=== PATIENT | male | born 1950 | race Caucasian/White ===

== ENCOUNTER 2024-09-16 16:57 | Inpatient (IN) | payer MEDICARE, OTHER ==
[~2024-09-16] VITALS: Ht 175.3 cm; Wt 109.8 kg
[2024-09-16] MEDS ORDERED: PREG75CA76 PO (17:41)
[2024-09-16] MEDS ORDERED: MAGN500T2 PO (17:41)
[2024-09-16] MEDS ORDERED: ASPI-869 PO (17:41)
[2024-09-16] MEDS ORDERED: DIVA250T47 PO (17:41)
[2024-09-16] MEDS ORDERED: DULO20CA19 PO (17:41)
[2024-09-16] MEDS ORDERED: ICOS1CAP PO (17:41)
[2024-09-16] MEDS ORDERED: PRAV20TA4 PO (17:42)
[2024-09-16] MEDS ORDERED: OMEP1CAP24 PO (17:42)
[2024-09-16] MEDS ORDERED: QUET200T31 PO (17:42)
[2024-09-16] MEDS ORDERED: SEMA1PEN INJ (17:42)
[2024-09-16] MEDS ORDERED: ERGO500040 PO (17:42)
[2024-09-16] MEDS ORDERED: DOCU100T10 PO (17:42)
[2024-09-16] MEDS ORDERED: ALLO100T PO (17:42)
[2024-09-16] MEDS ORDERED: EZET10TA32 PO (17:42)
[2024-09-16] MEDS ORDERED: ENAL20TA18 PO (17:42)
[2024-09-16] MEDS ORDERED: DAPA10TA PO (17:42)
[2024-09-16] MEDS ORDERED: TADA20TA43 PO (17:42)
[2024-09-16] MEDS ORDERED: CELE-85 PO (17:42)
[2024-09-16] MEDS ORDERED: DULO60CA64 PO (17:42)
[2024-09-16] MEDS ORDERED: TAMS-3 PO (17:42)
[2024-09-16] MEDS ORDERED: LEVO100T10 PO (17:42)
[2024-09-16 17:47] LABS: BASOPHILS % (AUTO) 0.7 % (0.0-2.0); EOSINOPHILS # (AUTO) 0.1 K/uL (0.0-0.7); EOSINOPHILS % (AUTO) 1.3 % (0.0-7.0); HEMATOCRIT 52.4 % (36.7-47.1); HEMOGLOBIN 17.4 g/dL (12.5-16.3); LYMPHOCYTES # (AUTO) 1.4 K/uL (0.8-4.8); LYMPHOCYTES % (AUTO) 20.8 % (20.5-51.5); MEAN CORPUSCULAR HEMOGLOBIN 29.2 uug (23.8-33.4); MEAN CORPUSCULAR HGB CONC 33 g/dL (32.5-36.3); MEAN CORPUSCULAR VOLUME 87.9 fL (73.0-96.2); MONOCYTES # (AUTO) 0.5 K/uL (0.1-1.30); MONOCYTES % (AUTO) 7.8 % (0.0-11.0); NEUTROPHILS # (AUTO) 4.6 K/uL (1.8-8.9); NEUTROPHILS % (AUTO) 69.4 % (38.5-71.5); PLATELET COUNT (AUTO) 222 K/uL (152-348); RED BLOOD CELL COUNT(AUTO) 5.96 MIL/uL (4.06-5.63); RED CELL DISTRIBUTION WIDTH 18.2 % (12.1-16.2); WHITE BLOOD COUNT (AUTO) 6.7 K/uL (3.6-10.2)
[2024-09-16 17:55] LABS: DIFFERENTIAL COMMENT 1
[2024-09-16 18:01] LABS: CALCIUM 9.4 mg/dL (8.5-10.1); CARBON DIOXIDE 27 mmol/L (21-32); CHLORIDE 97 mmol/L (98-107); CREATININE 1.1 mg/dL (0.6-1.3); GLUCOSE 247 mg/dL (74-106); POTASSIUM 4.9 mmol/L (3.5-5.1); SODIUM SERUM 134 mmol/L (136-145); UREA NITROGEN, BLOOD 19 mg/dL (7-18)
[2024-09-16 18:05] LABS: ETHANOL < 3 MG/DL (0-10)
[2024-09-16 18:06] LABS: ALANINE AMINOTRANSFERASE 66 U/L (16-63); ALBUMIN 4.2 g/dL (3.4-5.0); ALKALINE PHOSPHATASE 68 U/L (50-136); ASPARTATE AMINOTRANSFERASE 50 U/L (15-37); BILIRUBIN,DIRECT 0.3 mg/dL (0.0-0.2); BILIRUBIN,TOTAL 0.8 mg/dL (0.2-1.0); TOTAL PROTEIN, SERUM 7.6 g/dL (6.4-8.2)
[2024-09-16 18:45] LABS: BAND % (MANUAL) 1 % (0-10); EOSINOPHILS % (MANUAL) 3 % (0-8); LYMPHOCYTES % (MANUAL) 23 % (20-40); MONOCYTES % (MANUAL) 6 % (2-10); NEUTROPHILS % (MANUAL) 67 % (42-75); PLATELET ESTIMATE ADEQUATE
[2024-09-16 18:46] LABS: ANISOCYTOSIS 1+; OVALOCYTES OCC
[2024-09-16 19:08] LABS: *BILIRUBIN,URIN NEGATIVE (NEGATIVE); *BLOOD, URINE 2+ (NEGATIVE); *CLARITY,URINE CLEAR (CLEAR); *COLOR,URINE LIGHT YELLOW (YELLOW); *KETONES,URINE TRACE (NEGATIVE); *PROTEIN,URINE 1+ (NEGATIVE); *UROBILINOGEN,URINE 0.2 E.U./dl (NORMAL); LEUKOCYTE ESTERASE ,URINE TRACE (NEGATIVE); NITRITE, URINE NEGATIVE (NEGATIVE); UGLUCOSE 3+ (NEGATIVE)
[2024-09-16 19:12] LABS: BACTERIA,URINE FEW /HPF (NONE SEEN); SQUAMOUS EPITHELIAL CELL,UR FEW /HPF (NONE SEEN)
[2024-09-16 19:18] LABS: *AMPHETAMINE, URINE NEGATIVE (NEGATIVE); *BARBITURATE, URINE NEGATIVE (NEGATIVE); *BENZODIAZEPINE, URINE NEGATIVE (NEGATIVE); *CANNABINOID, URINE NEGATIVE (NEGATIVE); *COCCAINE, URINE NEGATIVE (NEGATIVE); *OPIATE, URINE NEGATIVE (NEGATIVE); *PHENCYCLIDINE SCREEN,URINE NEGATIVE (NEGATIVE); FENTANYL, URINE NEGATIVE (NEGATIVE)
[2024-09-16 22:00] VITALS: BP 153/92; TEMP 97.8; O2SAT 97
[2024-09-16] MEDS ORDERED: MAGNESIUM HYDROXIDE 30 ML LIQUID UDC PO PRN (22:00)
[2024-09-16] MEDS ORDERED: QUETIAPINE FUMARATE 25 MG TABLET PO PRN (22:00)
[2024-09-16] MEDS ORDERED: MAG HYDROX/AL HYDROX/SIMETH 30 ML LIQUID UDC PO PRN (22:00)
[2024-09-16] MEDS ORDERED: ZOLPIDEM 5 MG TABLET PO PRN ×2 (22:00)
[2024-09-16] MEDS ORDERED: ACETAMINOPHEN 325 MG TABLET PO PRN (22:00)
[2024-09-16] MEDS: BLOOD SUGAR DIAGNOSTIC 1 EACH STRIP VI ONE (22:20)
[2024-09-16] MEDS: QUETIAPINE FUMARATE 25 MG TABLET PO ONE (22:21)
[2024-09-16] MEDS: hydrALAZINE HCL 25 MG TABLET PO PRN (23:41)
[2024-09-17 08:14] VITALS: BP 131/65; TEMP 98; O2SAT 91
[2024-09-17] MEDS ORDERED: DUTA0.5C37 PO (10:16)
[2024-09-17] MEDS ORDERED: TADALAFIL 20 MG PO SCH (10:45)
[2024-09-17] MEDS: PREGABALIN 25 MG CAPSULE PO SCH (12:53)
[2024-09-17] MEDS ORDERED: PREGABALIN PO SCH (13:00)
[2024-09-17] MEDS: CEphaleXIN 500 MG CAPSULE PO SCH (14:22)
[2024-09-17 15:57] VITALS: BP 152/83; TEMP 98; O2SAT 98
[2024-09-17] MEDS ORDERED: DOCUSATE SODIUM 100 MG PO SCH (17:00)
[2024-09-17] MEDS ORDERED: Icosapent Ethyl (Vascepa) 2 CAP) PO SCH (17:00)
[2024-09-17] MEDS: DOCUSATE SODIUM 100 MG CAPSULE PO SCH (17:51)
[2024-09-17] MEDS: CELECOXIB 200 MG CAPSULE PO SCH (17:51)
[2024-09-17] MEDS ORDERED: DEXTROSE 50% 50 ML DISP.SYRIN IV PRN (18:45)
[2024-09-17 20:00] VITALS: BP 162/81; TEMP 98.1; O2SAT 96
[2024-09-17] MEDS: BLOOD SUGAR DIAGNOSTIC 1 EACH STRIP VI SCH (21:00)
[2024-09-17] MEDS ORDERED: risperiDONE 0.5 MG TABLET PO SCH (21:00)
[2024-09-17] MEDS: ATORVASTATIN 10 MG TABLET PO SCH (21:06)
[2024-09-17] MEDS: risperiDONE 0.25 MG TABLET PO SCH (21:06)
[2024-09-18] MEDS: LEVOTHYROXINE SODIUM 100 MCG TABLET PO SCH (06:36)
[2024-09-18] MEDS: PANTOPRAZOLE SODIUM 40 MG TABLET.DR PO SCH (06:36)
[2024-09-18 07:58] LABS: ALANINE AMINOTRANSFERASE 81 U/L (16-63); ALBUMIN 3.9 g/dL (3.4-5.0); ALKALINE PHOSPHATASE 65 U/L (50-136); ASPARTATE AMINOTRANSFERASE 61 U/L (15-37); BILIRUBIN,TOTAL 0.8 mg/dL (0.2-1.0); CALCIUM 8.8 mg/dL (8.5-10.1); CARBON DIOXIDE 28 mmol/L (21-32); CHLORIDE 99 mmol/L (98-107); GLUCOSE 211 mg/dL (74-106); SODIUM SERUM 136 mmol/L (136-145); TOTAL PROTEIN, SERUM 7.7 g/dL (6.4-8.2); UREA NITROGEN, BLOOD 18 mg/dL (7-18)
[2024-09-18 08:04] LABS: POTASSIUM 4.6 mmol/L (3.5-5.1)
[2024-09-18] MEDS: DUTASTERIDE 0.5 MG CAPSULE PO SCH (09:39)
[2024-09-18] MEDS: ASPIRIN EC 325 MG TABLET.DR PO SCH (09:40)
[2024-09-18] MEDS: DAPAGLIFLOZIN PROPANEDIOL 10 MG TABLET PO SCH (09:41)
[2024-09-18] MEDS: ENALAPRIL 10 MG TABLET PO SCH (09:42)
[2024-09-18] MEDS: ALLOPURINOL 100 MG TABLET PO SCH (09:43)
[2024-09-18] MEDS: EZETIMIBE 10 MG TABLET PO SCH (10:00)
[2024-09-18 10:47] VITALS: BP 122/71; TEMP 98; O2SAT 99
[2024-09-18 15:30] VITALS: BP 139/78; TEMP 98; O2SAT 96
[2024-09-18 20:00] VITALS: BP 151/88; TEMP 97.5; O2SAT 98
[2024-09-18] MEDS: ATORVASTATIN 20 MG TABLET PO SCH (20:29)
[2024-09-18] MEDS: TAMSULOSIN HCL 0.4 MG CAP.SR.24H PO SCH (20:30)
[2024-09-19 08:28] VITALS: BP 138/80; TEMP 98.5; O2SAT 98
[2024-09-19 16:55] VITALS: BP 113/49; TEMP 98; O2SAT 99
[2024-09-19 20:00] VITALS: BP 139/87; TEMP 98; O2SAT 96
[2024-09-20 08:28] VITALS: BP 139/78; TEMP 98.3; O2SAT 96
[2024-09-20] MEDS: ERGOCALCIFEROL 50,000 UNIT CAPSULE PO SCH (08:52)
[2024-09-20 16:58] VITALS: BP 140/68; TEMP 98; O2SAT 96
[2024-09-20 20:19] VITALS: BP 151/72; TEMP 98.4; O2SAT 97
[2024-09-20] MEDS: risperiDONE 0.5 MG TABLET PO SCH (20:33)
[2024-09-20] MEDS ORDERED: risperiDONE 0.25 MG TABLET PO SCH (21:00)
[2024-09-21 08:24] VITALS: BP 148/71; TEMP 97.9; O2SAT 100
[2024-09-21] MEDS: OXCARBAZEPINE 150 MG TABLET PO SCH (13:51)
[2024-09-21 19:53] VITALS: BP 143/76; TEMP 97.7; O2SAT 98
[2024-09-22 08:05] VITALS: BP 140/72; TEMP 98.2; O2SAT 96
[2024-09-22] MEDS: INSULIN REGULAR, HUMAN 1000 UNIT/10 ML VIAL SQ PRN (08:10)
[2024-09-22 15:13] VITALS: BP 113/81; TEMP 98.2; O2SAT 96
[2024-09-22 20:00] VITALS: BP 158/72; TEMP 97.9; O2SAT 97
[2024-09-23 08:23] VITALS: BP 159/88; TEMP 98; O2SAT 99
[2024-09-23 15:23] VITALS: BP 123/66; TEMP 98; O2SAT 98
[2024-09-23 20:00] VITALS: BP 141/75; TEMP 97.7; O2SAT 96
[2024-09-23] MEDS ORDERED: risperiDONE 0.5 MG TABLET PO SCH (21:00)
[2024-09-23] MEDS: risperiDONE 1 MG TABLET PO SCH (21:22)
[2024-09-24 08:00] VITALS: BP 157/77; TEMP 98; O2SAT 98
[2024-09-24 08:04] LABS: ALANINE AMINOTRANSFERASE 72 U/L (16-63); ALBUMIN 4.1 g/dL (3.4-5.0); ALKALINE PHOSPHATASE 64 U/L (50-136); ASPARTATE AMINOTRANSFERASE 49 U/L (15-37); CALCIUM 9.4 mg/dL (8.5-10.1); CARBON DIOXIDE 25 mmol/L (21-32); CHLORIDE 105 mmol/L (98-107); GLUCOSE 165 mg/dL (74-106); POTASSIUM 4.7 mmol/L (3.5-5.1); SODIUM SERUM 141 mmol/L (136-145); TOTAL PROTEIN, SERUM 8.1 g/dL (6.4-8.2); UREA NITROGEN, BLOOD 22 mg/dL (7-18)
[2024-09-24 16:02] VITALS: BP 131/64; TEMP 98; O2SAT 96
[2024-09-24 20:00] VITALS: BP 138/82; TEMP 97.4; O2SAT 96
[2024-09-25 08:32] VITALS: BP 152/69; TEMP 98; O2SAT 98
[2024-09-25 15:28] VITALS: BP 157/77; TEMP 98; O2SAT 96
[2024-09-25 19:52] VITALS: BP 150/71; TEMP 97.9; O2SAT 96
[2024-09-26 08:20] VITALS: BP 143/77; TEMP 98.5; O2SAT 96
[2024-09-26 16:36] VITALS: BP 135/65; TEMP 98; O2SAT 100
[2024-09-26 20:00] VITALS: BP 139/66; TEMP 97.7; O2SAT 95
[2024-09-27 08:47] VITALS: BP 156/76; TEMP 98; O2SAT 100
== END 2024-09-27 11:30 | disposition home or self-care (01) | DRG 885 ==
LOC: ER 17:33 → GPS 21:00
PROVIDERS: ADMIT Psychiatry & Neurology Psychiatry; ATTEND Nurse Practitioner Acute Care
PROC: 0HBRXZZ Excision of Toe Nail, External Approach (ICD-10-PCS; principal; 2024-09-26)
DX: F31.2 Bipolar disorder, current episode manic severe with psychotic features (principal); E11.65 Type 2 diabetes mellitus with hyperglycemia; N39.0 Urinary tract infection, site not specified; Z91.148 Patient's other noncompliance with medication regimen for other reason; E78.5 Hyperlipidemia, unspecified; Z79.82 Long term (current) use of aspirin; Z79.890 Hormone replacement therapy; Z79.899 Other long term (current) drug therapy; Z68.35 Body mass index [BMI] 35.0-35.9, adult; E66.9 Obesity, unspecified; B96.89 Other specified bacterial agents as the cause of diseases classified elsewhere; K21.9 Gastro-esophageal reflux disease without esophagitis; L60.2 Onychogryphosis; R74.01 Elevation of levels of liver transaminase levels; R79.89 Other specified abnormal findings of blood chemistry; R60.0 Localized edema; M10.9 Gout, unspecified; N40.0 Benign prostatic hyperplasia without lower urinary tract symptoms; Z79.84 Long term (current) use of oral hypoglycemic drugs; E03.9 Hypothyroidism, unspecified
CPT/HCPCS: 36415; 84443; 84484; 85025; G0480; J1815; J8499